=== PATIENT | male | born 1995 | race Caucasian/White ===

== ENCOUNTER 2017-10-13 13:14 | Emergency (ER) | payer OTHER ==
[2017-10-13] MEDS: MORPHINE 4 MG/ML 1ML VIAL (J2270) IV ×2 (15:43→16:31)
[2017-10-13] MEDS: CEFAZOLIN SOD 1 GM in APPROPRIATE DILUENT 1 EA IV (16:12)
== END 2017-10-13 16:57 | disposition home or self-care (01) ==
LOC: M ED 13:14
DX: S62.660A Nondisplaced fracture of distal phalanx of right index finger, initial encounter for closed fracture (principal); S62.662A Nondisplaced fracture of distal phalanx of right middle finger, initial encounter for closed fracture; S62.664A Nondisplaced fracture of distal phalanx of right ring finger, initial encounter for closed fracture; W20.8XXA Other cause of strike by thrown, projected or falling object, initial encounter; Y92.099 Unspecified place in other non-institutional residence as the place of occurrence of the external cause; Y93.9 Activity, unspecified
CPT/HCPCS: J2270

== ENCOUNTER 2018-06-03 15:16 | Emergency (ER) | payer OTHER ==
[2018-06-03] MEDS: LIDOCAINE 1% MDV 20ML VIAL IM (16:27)
== END 2018-06-03 16:58 | disposition home or self-care (01) ==
LOC: M ED 15:16
DX: S61.011A Laceration without foreign body of right thumb without damage to nail, initial encounter (principal); W26.0XXA Contact with knife, initial encounter; Y92.139 Unspecified place military base as the place of occurrence of the external cause; Y99.1 Military activity; F17.200 Nicotine dependence, unspecified, uncomplicated
CPT/HCPCS: 12002